=== PATIENT | male | born 1975 | race Caucasian/White ===

== ENCOUNTER 2018-12-22 19:01 | Emergency (ER) | payer BC ==
[2018-12-22] MEDS ORDERED: SODIUM CHLORIDE 0.9% 1,000 ML IV STA (19:33)
[2018-12-22] MEDS ORDERED: cefTRIAXone IN SWFI 1,000 MG/10 ML SYRINGE IVP STA (19:33)
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
[2018-12-22 20:42] LABS: Basophils # (A) 0.2 k/uL (0-0.2); Basophils % (A) 1 %; Eosinophils # (A) 0.4 k/uL (0-0.7); Eosinophils % (A) 3 %; HCT 47.9 % (39.0-53.0); HGB 16.1 gm/dL (13.0-17.5); Lymphocytes # (A) 3.1 k/uL (1.0-4.8); Lymphocytes % (A) 26 %; MCH 30.7 pg (25.0-35.0); MCHC 33.5 g/dL (31.0-37.0); MCV 91.6 fL (80.0-100.0); Mean Platelet Volume 8.9; Monocytes # (A) 0.7 k/uL (0-1.0); Monocytes % (A) 6 %; Neutrophils # (A) 7.5 k/uL (1.3-7.7); Neutrophils % (A) 63 %; Platelet Count 213 k/uL (150-450); RBC 5.23 m/uL (4.30-5.90); RDW 15.1 % (11.5-15.5); WBC 11.9 k/uL (3.8-10.6)
[2018-12-22 20:50] LABS: ALT 45 U/L (21-72); African American GFR (CKD) >90 (>60 ml/min/1.73 sqM); Albumin 4.7 g/dL (3.5-5.0); Alkaline Phosphatase 77 U/L (38-126); Anion Gap 12 mmol/L; Blood Urea Nitrogen 20 mg/dL (9-20); Calcium 9.8 mg/dL (8.4-10.2); Carbon Dioxide 24 mmol/L (22-30); Chloride 104 mmol/L (98-107); Potassium 4.1 mmol/L (3.5-5.1); Sodium 140 mmol/L (137-145); Total Protein 7.6 g/dL (6.3-8.2)
[2018-12-22 20:51] LABS: AST 27 U/L (17-59); Glucose 94 mg/dL (74-99); Total Bilirubin 0.4 mg/dL (0.2-1.3)
--- NOTE | 2018-12-22 20:58 | XR ---
EXAMINATION TYPE: XR tibia fibula LT DATE OF EXAM: 12/22/2018 COMPARISON: NONE HISTORY: Cellulitis TECHNIQUE: 4 views FINDINGS: Knee joint and ankle joint appear intact. I see no fracture nor dislocation. There is an Ac hilles calcaneal spur. IMPRESSION: Negative left tibia and fibula exam.
[2018-12-22 21:01] VITALS: TEMP 98.6
[2018-12-22] MEDS ORDERED: CEPHALEXIN 500MG STARTER PACK 4 CAP BTL PO STA (21:23)
[2018-12-22 21:33] VITALS: BP 106/63; PULSE 79; RESP 18
== END 2018-12-22 21:38 | disposition home or self-care (01) ==
LOC: EC 19:01
DX: L03.116 Cellulitis of left lower limb (principal); R21 Rash and other nonspecific skin eruption; S80.812A Abrasion, left lower leg, initial encounter; Z95.1 Presence of aortocoronary bypass graft; X58.XXXA Exposure to other specified factors, initial encounter
CPT/HCPCS: 36415; 80053; 83605; 85025; 87040; 73590; 99284; 10160; 96374; 96361; J0696